=== PATIENT | female | born 1945 | race Caucasian/White ===

== ENCOUNTER 2016-07-18 12:47 | Emergency (ER) | payer MEDICARE, OTHER ==
[2016-07-18] MEDS ORDERED: IV NORMAL SALINE 1,000ML 1,000 ML IV SCH (13:12)
[2016-07-18] MEDS ORDERED: IV NORMAL SALINE 50ML 50 ML ONE (13:20)
[2016-07-18] MEDS ORDERED: CEFTRIAXONE SODIUM 1 GM VIAL IV ONE (13:20)
--- NOTE | 2016-07-18 13:28 | PHYS DOC ---
General Chief Complaint: SHORTNESS OF BREATH Stated Complaint: SOA,WEAKNESS Time Seen by MD: 13:05 Source: patient Exam Limitations: no limitations Problems: History of Present Illness Initial Comments Pt is 71/F to ED c/o sob, weakness. Pt states last Tuesday (8 days ago) while visiting family in [place] she developed fever and SOB. States she was seen at an ED in [place] diagnosed with possible LLL pneumonia. She was discharged with prednisone and levaquin 750mg. States she has been taking meds as prescribed, but feels she has not improved. "After a week I should feel better than this." No fever/chills/cp/ hemoptysis, weight loss, ANDERSON, focal weakness. Pt denies recent increase in LE edema, has trouble sleeping while lying flat denies PND. Chemical stress 2 yrs ago reportedly normal. 97% RA in ED. Timing/Duration: 1 week Severity: moderate Modifying Factors: worse with movement, improves with rest Associated Symptoms: cough, malaise, shortness of breath, weakness Allergies: Coded Allergies: Sulfa (Sulfonamide Antibiotics) (Verified Allergy, Unknown, 07/18/16) Past Medical History Medical History: other (asthma, HTN, osteoarthritis, GERD, anxiety, depression , HLP) Surgical History: noncontributory Social History Smoker: non-smoker Alcohol: none Drugs: none Review of Systems Constitutional: denies chills, denies fever, malaise Respiratory: see HPI Cardiovascular: denies chest pain, denies palpitations, denies syncope Gastrointestinal: denies abdominal pain, denies diarrhea, denies vomiting Genitourinary: denies dysuria, denies frequency, denies hematuria Musculoskeletal: denies back pain, denies joint swelling, denies neck pain Psychiatric/Neurological: denies headache, denies numbness, denies paresthesia Hematologic/Lymphatic: denies blood clots, denies easy bleeding, denies easy bruising Physical Exam General Appearance: no apparent distress, obese Eyes: bilateral eye EOMI, bilateral eye PERRL, bilateral eye normal inspection Ear, Nose, Throat: hearing grossly normal, normal ENT inspection, normal pharynx Neck: non-tender, supple Cardiovascular: normal peripheral pulses, regular rate, rhythm Gastrointestinal: non tender, soft Extremities: normal range of motion, non-tender (2+ pitting) Neurologic/Psychiatric: curtain cleaner II-XII nml as tested, no motor/sensory deficits, alert, normal mood/affect, oriented x 3 Skin: normal color, warm/dry Orders, Labs, Meds EKG: NSR 79 bpm no STEMI PATIENT: VY RICHARDSON ACCOUNT: [id number] : 1945 LOCATION: ER AGE: 71 SEX: F EXAM STATUS: REG ER ORD. PHYSICIAN: DAYANA BONILLA DO REASON: SHORTNESS OF BREATH PROCEDURE: CHEST PA & LATERAL EXAM: Chest, 2 views. HISTORY: Pneumonia. COMPARISON: 08/25/2011. FINDINGS: Frontal and lateral views of the chest are obtained. There is no infiltrate, effusion or pneumothorax. The heart is normal in size. IMPRESSION: No acute pulmonary finding. DICTATED AND SIGNED BY: MADDIE ZIEGLER MD DATE: 07/18/16 1505 CC: MITCHELL KUNZ MD; DAYANA BONILLA DO ~ Labs reassuring Discussed results. No cause for pt symptoms, I feel no emergent etiology. Discussed treatment plan, pt expressed agreement/understanding. Departure Time of Disposition: 15:21 Disposition: 01 HOME, SELF-CARE Diagnosis: generalized weakness, h/o LLL pneumonia Condition: GOOD Patient Instructions: Weakness, [id number] Additional Instructions: Rest, no strenuous activity. Aggressive hydration with gatorade, water. Continue current meds. Follow up with your doctor in 2-3 days. Return to ED with new or changing symptoms. DAYANA BONILLA DO Jul 18, 2016 13:28
[2016-07-18] MEDS ORDERED: IPRATRPIUM/ALBUTEROL 0.5/2.5MG 3 ML NEBU. NEB ONE (13:30)
[2016-07-18] MEDS ORDERED: methylPREDNISolone SOD SUCC PF 125 MG/2 ML VIAL. IV ONE (13:40)
[2016-07-18] MEDS ORDERED: CEFTRIAXONE SODIUM 1 GM in IV NORMAL SALINE 50ML 50 ML IV ONE (13:45)
[2016-07-18 14:00] LABS: BACTERIA,URINE 0 /HPF (0-FEW); BILIRUBIN,URINE NEG (NEG); CLARITY,URINE CLEAR; COLOR,URINE STRAW; GLUCOSE,URINE NEG (NEG); NITRITE,URINE NEG (NEG); RBC,URINE RARE /HPF (0-2); UROBILINOGEN,URINE 0.2 mg/dL (0.2 mg/dL); WBC,URINE OCC /HPF (0-4)
[2016-07-18 14:01] LABS: SQUAMOUS EPITHELIAL CELL,UR FEW /LPF
[2016-07-18 14:06] LABS: BASO % 0 % (0-3); EOS # 0.1 x10^3/uL (0.0-0.7); EOS % 2 % (0-3); HEMOGLOBIN 12.9 g/dL (12.0-15.5); LYMPH # 2.7 x10^3/uL (1.0-4.8); LYMPH % 29 % (24-48); MEAN CORPUSCULAR HEMOGLOBIN 32 pg (25-35); MEAN CORPUSCULAR HGB CONC 34 g/dL (31-37); MEAN CORPUSCULAR VOLUME 95 fL (79-100); MONO # 0.8 x10^3/uL (0.0-1.1); MONO % 9 % (0-9); NEUT # 5.5 x10^3uL (1.8-7.7); NEUT % 60 % (31-73); PLATELET COUNT 381 x10^3/uL (140-400); RED BLOOD COUNT 3.99 x10^6/uL (3.50-5.40); RED CELL DISTRIBUTION WIDTH 12.9 % (11.5-14.5); WHITE BLOOD COUNT 9.1 x10^3/uL (4.0-11.0)
[2016-07-18 14:14] LABS: ALBUMIN 3.3 g/dL (3.4-5.0); CALCIUM 8.6 mg/dL (8.5-10.1); CREATININE 0.8 mg/dL (0.6-1.0); GFR 70.9; POTASSIUM 4.2 mmol/L (3.5-5.1); TOTAL BILIRUBIN 0.3 mg/dL (0.2-1.0); TOTAL PROTEIN 6.6 g/dL (6.4-8.2)
--- NOTE | 2016-07-18 14:17 | EKG ---
[address] [address] Test Date: 2016-07-18 Test Time: 13:40:20 Pat Name: VY RICHARDSON Department: Room: Gender: F Broker Associate: VAHID : 1945 Requested By: DAYANA BONILLA Order Number: [id number] Reading MD: Measurements Intervals Baird Rate: 79 P: 54 DC: 166 QRS: 6 QRSD: 80 T: 42 QT: 382 QTc: 439 Interpretive Statements SINUS RHYTHM QRS(T) CONTOUR ABNORMALITY CONSIDER ANTEROSEPTAL MYOCARDIAL DAMAGE POSSIBLY ABNORMAL ECG RI6.01 Unconfirmed report No previous ECG available for comparison
[2016-07-18 14:24] LABS: INFLUENZA A PATIENT NEGATIVE (NEGATIVE); INFLUENZA B PATIENT NEGATIVE (NEGATIVE)
[2016-07-18 14:30] VITALS: BP 159/81
[2016-07-18] MEDS ORDERED: ALPRAZOLAM 0.25 MG TABLET PO ONE (15:00)
--- NOTE | 2016-07-18 15:09 | RAD ---
EXAM: Chest, 2 views. HISTORY: Pneumonia. COMPARISON: 08/25/2011. FINDINGS: Frontal and lateral views of the chest are obtained. There is no infiltrate, effusion or pneumothorax. The heart is normal in size. IMPRESSION: No acute pulmonary finding.
== END 2016-07-18 15:59 | disposition home or self-care (01) ==
LOC: ER 12:47
DX: R06.02 Shortness of breath (principal); R53.1 Weakness; J45.909 Unspecified asthma, uncomplicated; I10 Essential (primary) hypertension; K21.9 Gastro-esophageal reflux disease without esophagitis; E78.5 Hyperlipidemia, unspecified; M19.90 Unspecified osteoarthritis, unspecified site; Z88.2 Allergy status to sulfonamides
CPT/HCPCS: 36415; 71020; 80053; 81001; 82550; 83605; 83690; 83880; 84484; 85027; 85379; 87040; 87804; 93005; 96365; 96375; 99285; J0696; J2930; J7030

== ENCOUNTER 2018-01-06 18:50 | Emergency (ER) | payer MEDICARE, OTHER ==
[~2018-01-06] VITALS: Ht 157.5 cm; Wt 83.9 kg
[2018-01-06] MEDS ORDERED: MORPHINE SULFATE 4 MG/ML DISP.SYRIN. IV ONE (20:00)
[2018-01-06] MEDS ORDERED: IV NORMAL SALINE 1,000ML 1,000 ML IV ONE ×2 (20:15→22:45)
--- NOTE | 2018-01-06 20:19 | PHYS DOC ---
Past History Past Medical History: Anxiety, Arthritis, Asthma, Depression, GERD, Hypertension, Other Past Surgical History: Appendectomy, Hysterectomy, Other Smoking: Non-smoker Alcohol Use: Occasionally Drug Use: None Adult General Chief Complaint Chief Complaint: WRIST PAIN HPI HPI Patient is a 72 year old female who presents to the ED with left wrist pain and swelling following a fall one hour ago. She states she was leaving from someone's house when she missed the bottom step on the stairs and fell backwards. She outstretched her arm backwards to land the fall. Patient's notes that her head hit a flower pot. She denies any headaches, dizziness, vision changes, or loss of consciousness. Patient rates her wrist pain as a 10/10 and describes the pain is being sharp and constant. Pain does not radiate anywhere else. She reports significant erythema and edema. She has not tried anything to help with her pain, other than ice which is helping slightly. The pain is all around her wrist, but worst on the palmar side. Review of Systems Review of Systems Constitutional: Denies fever or chills Eyes: Denies change in visual acuity, redness, or eye pain HENT: Denies nasal congestion or sore throat Respiratory: Denies cough or shortness of breath Cardiovascular: Denies chest pain or heart palpitations GI: Denies abdominal pain, nausea, vomiting, bloody stools or diarrhea : Denies dysuria or hematuria Musculoskeletal: Notes left wrist and hand pain; Denies back pain or joint pain Integument: Denies rash or skin lesions Neurologic: Denies headache, focal weakness or sensory changes Complete systems were reviewed and found to be within normal limits, except as documented in this note. Family History Family History Noncontributory Current Medications Current Medications Current Medications Medications (Trade) Dose Ordered Sig/Sunita Start Time Stop Time Status Last Admin Dose Admin Fentanyl Citrate (Fentanyl 2ml Vial) 50 mcg 1X ONCE 01/06/18 19:30 01/06/18 19:31 DC 01/06/18 19:30 50 MCG Morphine Sulfate (Morphine 4mg Syringe) 4 mg 1X ONCE 01/06/18 20:00 01/06/18 20:07 DC 01/06/18 20:06 4 MG Allergies Allergies Allergies Coded Allergies Type Severity Reaction Last Updated Verified Influenza Virus Vaccines Allergy Severe 01/06/18 Yes Sulfa (Sulfonamide Antibiotics) Allergy Unknown 07/18/16 Yes pseudoephedrine Adverse Reaction Intermediate 01/06/18 Yes Physical Exam Physical Exam Constitutional: Well developed, well nourished, in acute distress HENT: Normocephalic, atraumatic, oropharynx moist Eyes: PERRL, EOMI, Conjunctiva normal, no discharge Neck: Normal range of motion, no midline tenderness, supple Cardiovascular: Heart rate regular rhythm, no murmur Lungs & Thorax: Bilateral breath sounds clear to auscultation Abdomen: Soft, no tenderness Skin: Warm, dry, no erythema, no rash Back: No midline tenderness, no CVA tenderness Extremities: Left wrist significantly tender to palpation with erythema and edema, obvious deformity noted, Radial pulse +2, CR< 2 sec Neurologic: Alert and oriented X 3, normal motor function, normal sensory function, cerebellar function Psychologic: Affect normal, judgement normal, mood normal EKG EKG [] Radiology/Procedures Radiology/Procedures PROCEDURE: WRIST 3V LEFT Three-view left wrist radiographs 01/06/2018 CLINICAL HISTORY: Fall with injury to the left wrist. Deformity. PA, lateral and oblique digital radiographs of the left wrist were obtained. An acute comminuted fracture of the distal left radial metaphysis is seen. The fracture fragments are impacted. Mild to moderate dorsal angulation of the major distal fracture fragment is noted. It is difficult to determine whether the fracture extends into the growth plate on these radiographs. Chondrocalcinosis is seen in the region of the TFCC IMPRESSION: Acute comminuted fracture of the distal left radial metaphysis as outlined above. Electronically signed by: Bryan Thompson MD (01/06/2018 9:00 PM) [facility] PROCEDURE: WRIST 2V LEFT Two-view left wrist radiographs 01/06/2018 CLINICAL HISTORY: Post reduction of a fracture of the left wrist. PA and lateral digital radiographs of the left wrist were obtained. Comparison study is dated earlier today at 1917 hours. An external cast been placed surrounding the left forearm and wrist. An acute comminuted fracture of the distal left radial metaphysis is seen. Mild dorsal angulation of the distal fracture fragment is noted. This has improved since the previous examination. IMPRESSION: Post reduction of a fracture of the distal left radius with interval placement of an external cast. Electronically signed by: Bryan Thompson MD (01/06/2018 10:43 PM) [facility] PROCEDURE: WRIST 2V LEFT Examination: 2 views of the left wrist HISTORY: History of post reduction COMPARISON: 01/06/2018 8:47 PM f Findings/ impression: Cast obscures fine bony detail. Comminuted acute fracture of the distal radius metadiaphysis is again identified with mild dorsal angulation of the distal fracture fragment slightly improved compared to prior exam. Electronically signed by: Michel Vázquez MD (01/07/2018 1:44 AM) [facility] Course & Med Decision Making Course & Med Decision Making Patient is a 72 year old female who presents to the ED with left wrist pain, swelling, and deformity following a fall. Pertinent labs and imaging studies were obtained and reviewed (see chart for details). Patient noted she was in severe pain and rated it as a 10/10. She received ice, Fentanyl and morphine. Wrist x-ray showed an acute comminuted fracture of the distal left radial metaphysis. Closed reduction under moderate sedation was performed and an external splint was wrapped. Post-reduction XR obtained with some mild improvement. Secondary reduction was performed and the external splint was re-wrapped. Repeat wrist x-ray showed significant improvement. Patient advised to followup with the orthopedist Dr. Ascencion Leigh in 3-7 days and was provided with care instructions for her wrist as well as a prescription for [place] for her pain. Patient stable for discharge with outpatient follow-up with Dr. Leigh. Discussed findings and plan with patient and , who acknowledge understanding and agreement. Dragon Disclaimer Dragon Disclaimer This electronic medical record was generated, in whole or in part, using a voice recognition dictation system. Departure Departure: Impression: Primary Impression: Distal radius fracture, left Disposition: 01 HOME, SELF-CARE Condition: STABLE Referrals: MITCHELL KUNZ MD (PCP) Patient Instructions: Cast or Splint Care, [id number], Sedation, Moderate, Adult, Wrist Fracture, [id number] Additional Instructions: Call Dr. Ascencion Leigh (orthopedics) for follow-up in 3-7 days at [facility] Docusate Sodium (COLACE) 100 Mg Capsule 1 CAP PO BID PRN for CONSTIPATION, #30 CAP Prov: ROSENDO RIOS DO 01/06/18 Hydrocodone Bit/Acetaminophen (NORCO 5-325 TABLET) 1 Each Tablet 1 TAB PO Q6HRS for PAIN, #14 TAB Prov: ROSENDO RIOS DO 01/06/18 Joint Reduction Procedure Joint Indication: [Closed Left distal radius fracture] Consent: [Written] Procedure: The pre-reduction exam showed Acute comminuted fracture of distal radial metaphysis. The patient was placed in sitting position with head of bed at 60 degrees. Appropriate airway, respiratory, cardiovascular and neurological assessment previously obtained. Cardiac, pulse oximetry, and end tidal CO2 monitoring in place. Supplemental O2 via NC empirically initiated. Time out performed. Anesthesia/pain control with a total of 200mcg of Fentanyl, 10mg of Etomidate, and 150mg of Ketamine. Patient did have some significant fasciculations after administration of Etomidate which limited ability to attempt reduction and required additional sedation medication of Ketamine. Reduction of the Left distal radius was performed by physical manipulation and traction. The affected area was immobilized with Orthoglass sugar tong splint. Post reduction films obtained with some improvement of alignment but was felt to not be adequate. Additional reduction performed after administration of 60mg of Propofol. Orthoglass splint was again applied. A post-reduction exam revealed CR < 2 sec and radial pulse +2. The patient tolerated the procedure well. Complications: As above (fasciculations after administration of 10mg of Etomidate) MODERATE SEDATION ASSESSMENT RISKS/ALTERNATIVES Risks/Alternatives Risks and alternatives of this type of sedation and procedure discussed with: RISK/ALTERNATIVES DISCUSSED: Patient H & P ON CHART H & P H & P on chart and reviewed for co-morbid conditions and appropriate labs. H&P ON CHART: Yes STATUS PREG STATUS ASSESSED: N/A MEDS/ALLERGIES REVIEWED Meds/Allergies Reviewed Medications and Allergies including time and route of recently administered narcotics and sedatives. MEDS/ALLERGIES REVIEWED: Yes ASA RATING ASA RATING: II AIRWAY ASSESSMENT Airway Assessment Airway patency, oral function limitations, presence of caps, crowns, dentures, partials, and ability to extend neck assessed. AIRWAY ASSESSMENT: Yes MALLAMPATI SCORE MALLAMPATI SCORE: III PRE-SEDATION ASSESSMENT PRE-SEDATION PHYSICAL: Yes Splinting Splinting : Location: Left wrist Hand-Made Type: orthoglass Splint: sugar-tong Pre-Proc Neuro Vasc Exam: normal Post-Proc Neuro Vasc Exam: normal, unchanged from pre-exam Problem Qualifiers Primary Impression: Distal radius fracture, left Encounter type: initial encounter Fracture type: closed Fracture morphology : unspecified fracture morphology Qualified Codes: S52.502A - Unspecified fracture of the lower end of left radius, initial encounter for closed fracture ROSENDO RIOS DO Jan 06, 2018 20:19
[2018-01-06] MEDS ORDERED: ETOMIDATE 40 MG/20 ML VIAL. IV ONE (20:30)
[2018-01-06] MEDS ORDERED: KETAMINE HCL 500 MG/10 ML VIAL. IV ONE ×3 (21:00)
--- NOTE | 2018-01-06 21:04 | RAD ---
Three-view left wrist radiographs 01/06/2018 CLINICAL HISTORY: Fall with injury to the left wrist. Deformity. PA, lateral and oblique digital radiographs of the left wrist were obtained. An acute comminuted fracture of the distal left radial metaphysis is seen. The fracture fragments are impacted. Mild to moderate dorsal angulation of the major distal fracture fragment is noted. It is difficult to determine whether the fracture extends into the growth plate on these radiographs. Chondrocalcinosis is seen in the region of the TFCC IMPRESSION: Acute comminuted fracture of the distal left radial metaphysis as outlined above. Electronically signed by: Bryan Thompson MD (01/06/2018 9:00 PM) [facility]
[2018-01-06] MEDS ORDERED: PROPOFOL 20 ML IV ONE ×3 (22:04→22:30)
[2018-01-06] MEDS ORDERED: HYDR-971 PO (22:41)
--- NOTE | 2018-01-06 22:46 | RAD ---
Two-view left wrist radiographs 01/06/2018 CLINICAL HISTORY: Post reduction of a fracture of the left wrist. PA and lateral digital radiographs of the left wrist were obtained. Comparison study is dated earlier today at 1917 hours. An external cast been placed surrounding the left forearm and wrist. An acute comminuted fracture of the distal left radial metaphysis is seen. Mild dorsal angulation of the distal fracture fragment is noted. This has improved since the previous examination. IMPRESSION: Post reduction of a fracture of the distal left radius with interval placement of an external cast. Electronically signed by: Bryan Thompson MD (01/06/2018 10:43 PM) [facility]
[2018-01-06] MEDS ORDERED: DOCU-109 PO (22:48)
[2018-01-06] MEDS ORDERED: HYDROcodone/APAP 7.5/325MG 1 TAB TABLET ONE (23:22)
[2018-01-06] MEDS ORDERED: LORazepam 2 MG/ML VIAL IV ONE (23:30)
[2018-01-06] MEDS ORDERED: HYDROcodone/APAP 5/325MG 1 TAB TABLET PO ONE (23:30)
[2018-01-06] MEDS ORDERED: HYDROcodone/APAP 7.5/325MG 1 TAB TABLET PO ONE (23:45)
[2018-01-07 00:30] VITALS: BP 149/84
--- NOTE | 2018-01-07 01:47 | RAD ---
Examination: 2 views of the left wrist HISTORY: History of post reduction COMPARISON: 01/06/2018 8:47 PM f Findings/ impression: Cast obscures fine bony detail. Comminuted acute fracture of the distal radius metadiaphysis is again identified with mild dorsal angulation of the distal fracture fragment slightly improved compared to prior exam. Electronically signed by: Michel Vzáquez MD (01/07/2018 1:44 AM) [facility]
[2018-01-07] MEDS ORDERED: MONT10TA6 PO (03:26)
[2018-01-07] MEDS ORDERED: proair INH (03:39)
[2018-01-07] MEDS ORDERED: SIMV10TA PO (03:39)
[2018-01-07] MEDS ORDERED: ROPI2TAB4 PO (03:39)
[2018-01-07] MEDS ORDERED: RALO60TA PO (03:39)
[2018-01-07] MEDS ORDERED: NEBI5TAB2 PO (03:39)
[2018-01-07] MEDS ORDERED: FLUT9.9S NS (03:39)
[2018-01-07] MEDS ORDERED: CYCL1DRO OP (03:39)
[2018-01-07] MEDS ORDERED: LANS30CA66 PO (03:39)
[2018-01-07] MEDS ORDERED: ALPR1TAB2 PO (03:39)
[2018-01-07] MEDS ORDERED: MIRA25TA PO (03:39)
[2018-01-07] MEDS ORDERED: MELO15TA23 PO (03:39)
[2018-01-07] MEDS ORDERED: VICODIN ES PO (03:39)
[2018-01-07] MEDS ORDERED: VALA500T5 PO (03:39)
[2018-01-07] MEDS ORDERED: TRINTELLEX PO (03:39)
[2018-01-07] MEDS ORDERED: XOPENEX1.25 MG/3 IH (03:39)
[2018-01-07] MEDS ORDERED: CYCL-331 PO (03:39)
[2018-01-07] MEDS ORDERED: OMEGA PO (03:48)
[2018-01-07] MEDS ORDERED: MULT1TAB52 PO (03:48)
[2018-01-07] MEDS ORDERED: FLAX100031 PO (03:48)
[2018-01-07] MEDS ORDERED: CHOL500016 PO (03:48)
[2018-01-07] MEDS ORDERED: Co Q 10 PO (03:48)
[2018-01-07] MEDS ORDERED: VITA400C36 PO (03:48)
[2018-01-07] MEDS ORDERED: GLUC1CAP48 PO (03:48)
[2018-01-07] MEDS ORDERED: VIT D PO (03:48)
[2018-01-07] MEDS ORDERED: ACET500T33 PO (03:48)
[2018-01-07] MEDS ORDERED: CITRACAL PO (03:48)
== END 2018-01-07 00:45 | disposition home or self-care (01) ==
LOC: ER 18:50
DX: S52.502A Unspecified fracture of the lower end of left radius, initial encounter for closed fracture (principal); F41.9 Anxiety disorder, unspecified; M19.90 Unspecified osteoarthritis, unspecified site; J45.909 Unspecified asthma, uncomplicated; K21.9 Gastro-esophageal reflux disease without esophagitis; I10 Essential (primary) hypertension; F32.9 Major depressive disorder, single episode, unspecified; Z88.2 Allergy status to sulfonamides; Z88.7 Allergy status to serum and vaccine; Z88.8 Allergy status to other drugs, medicaments and biological substances; W10.9XXA Fall (on) (from) unspecified stairs and steps, initial encounter; Y93.89 Activity, other specified; Y92.89 Other specified places as the place of occurrence of the external cause; Y99.8 Other external cause status
CPT/HCPCS: 25605; 73100; 73110; 96374; 96375; 99285; J2060; J2270; J2704; J3010; J3490; 99152; 99153; J7030

== ENCOUNTER 2018-01-07 21:10 | Emergency (ER) | payer MEDICARE, OTHER ==
[~2018-01-07] VITALS: Ht 157.5 cm; Wt 83.9 kg
[~2018-01-07 21:10] MED LIST: ACET500T33 PO; ALPR1TAB2 PO; CHOL500016 PO; CITRACAL PO; CYCL-331 PO; CYCL1DRO OP; Co Q 10 PO; DOCU-109 PO; FLAX100031 PO; FLUT9.9S NS; GLUC1CAP48 PO; HYDR-971 PO; LANS30CA66 PO; MELO15TA23 PO; MIRA25TA PO; MONT10TA6 PO; MULT1TAB52 PO; NEBI5TAB2 PO; OMEGA PO; RALO60TA PO; ROPI2TAB4 PO; SIMV10TA PO; TRINTELLEX PO; VALA500T5 PO; VICODIN ES PO; VIT D PO; VITA400C36 PO; XOPENEX1.25 MG/3 IH; proair INH
--- NOTE | 2018-01-07 21:14 | ED.ADGEN ---
Past History Past Medical History: Anxiety, Arthritis, Asthma, Depression, GERD, High Cholesterol, Hypertension, Other Past Surgical History: Appendectomy, Hysterectomy, Knee Replacement Smoking: Non-smoker Alcohol Use: Occasionally Drug Use: None Adult General Chief Complaint Chief Complaint "... My arm hurts.. " [facility] HPI Patient is a 72 year old female who presents with above hx and complaints pain in Lt. forearm. Pt. seen yesterday for fx Lt. wrist. Reduction and splint at that time. (See prior ED report). Pt. has not kept arm elevated well since discharge yesterday. Pt. did take home meds for pain, but did not get complete relief. Pt. does have edema to finger on lt. hand. Distal sensation intact, and range motion of fingers. Splint wrap removed. After Ice pack and pain meds. - wrist re-splinted. Pt. advise would not be reasonable to have complete relief of pain. Pt. must keep wrist elevated above her heart. Pt. must keep follow up. Pt. to return if any concerns. Review of Systems Review of Systems Constitutional: Denies fever or chills [] Eyes: Denies change in visual acuity, redness, or eye pain [] HENT: Denies nasal congestion or sore throat [] Respiratory: Denies cough or shortness of breath [] Cardiovascular: No additional information not addressed in HPI [] GI: Denies abdominal pain, nausea, vomiting, bloody stools or diarrhea [] : Denies dysuria or hematuria [] Musculoskeletal: Denies back pain or joint pain []Complaints of Lt wrist pain. Integument: Denies rash or skin lesions [] Neurologic: Denies headache, focal weakness or sensory changes [] Endocrine: Denies polyuria or polydipsia [] All other systems were reviewed and found to be within normal limits, except as documented in this note. Family History Family History Non-contributory Current Medications Current Medications Current Medications Medications (Trade) Dose Ordered Sig/Sunita Start Time Stop Time Status Last Admin Dose Admin Lorazepam (Ativan) 2 mg 1X ONCE 01/07/18 22:30 01/07/18 22:31 DC 01/07/18 22:25 2 MG Morphine Sulfate (Morphine 10mg Syringe) 10 mg 1X ONCE 01/07/18 21:45 01/07/18 21:46 DC 01/07/18 21:54 10 MG Allergies Allergies Allergies Coded Allergies Type Severity Reaction Last Updated Verified Influenza Virus Vaccines Allergy Severe 01/06/18 Yes Sulfa (Sulfonamide Antibiotics) Allergy Unknown 07/18/16 Yes pseudoephedrine Adverse Reaction Intermediate 01/06/18 Yes Physical Exam Physical Exam Constitutional: Well developed, well nourished, moderately acute distress, non- toxic appearance. [] HENT: Normocephalic, atraumatic, bilateral external ears normal, oropharynx moist, no oral exudates, nose normal. [] Eyes: PERRLA, EOMI, conjunctiva normal, no discharge. [] Neck: Normal range of motion, no tenderness, supple, no stridor. [] Cardiovascular:Heart rate regular rhythm, no murmur [] Lungs & Thorax: Bilateral breath sounds clear to auscultation [] Abdomen: Bowel sounds normal, soft, no tenderness, no masses, no pulsatile masses. [] Obese. Scar. Skin: Warm, dry, no erythema, no rash. [] Back: No tenderness, no CVA tenderness. [] Extremities: No tenderness, no cyanosis, no clubbing, ROM intact,Except Lt. had and wrist edema. [Splinted. Splint removed for skin exam. Neurologic: Alert and oriented X 3, normal motor function, normal sensory function, no focal deficits noted. [] Psychologic: Affect anxious, judgement normal, mood normal. [] Current Patient Data Vital Signs Vital Signs Date Time Temp Pulse Resp B/P (MAP) Pulse Ox O2 Delivery O2 Flow Rate FiO2 01/07/18 21:54 22 97 Room Air 01/07/18 21:43 98.0 81 EKG EKG [] Radiology/Procedures Radiology/Procedures Reviewed prior x-ray films. [] Course & Med Decision Making Course & Med Decision Making Pertinent Labs and Imaging studies reviewed. (See chart for details) MUST KEEP WRIST ELEVATED ABOVE HEART. Take pain meds as directed. Must follow up with orthro and primary. Return if any concerns. [] Final Impression Final Impression 1. Wrist Fx Lt. [] Dragon Disclaimer Dragon Disclaimer This electronic medical record was generated, in whole or in part, using a voice recognition dictation system. GRIFFIN URIOSTEGUI MD Jan 07, 2018 21:14
[2018-01-07 21:43] VITALS: BP 163/99
[2018-01-07] MEDS ORDERED: MORPHINE SULFATE 10 MG/ML SYRINGE. SQ ONE (21:45)
[2018-01-07] MEDS ORDERED: LORazepam 1 MG TABLET PO ONE (22:30)
== END 2018-01-07 23:00 | disposition home or self-care (01) ==
LOC: ER 21:10
DX: S52.502D Unspecified fracture of the lower end of left radius, subsequent encounter for closed fracture with routine healing (principal); M79.632 Pain in left forearm; R60.9 Edema, unspecified; M19.90 Unspecified osteoarthritis, unspecified site; J45.909 Unspecified asthma, uncomplicated; F41.9 Anxiety disorder, unspecified; F32.9 Major depressive disorder, single episode, unspecified; E78.00 Pure hypercholesterolemia, unspecified; I10 Essential (primary) hypertension; Z88.2 Allergy status to sulfonamides; Z88.7 Allergy status to serum and vaccine; Z88.8 Allergy status to other drugs, medicaments and biological substances; X58.XXXD Exposure to other specified factors, subsequent encounter
CPT/HCPCS: 96372; 99283; J2270

== ENCOUNTER → 2020-02-26 | Outpatient (CLI) | payer MEDICARE, OTHER ==
[~2020-02-26] MED LIST changes: +HYDR-3165 PO; -HYDR-971 PO; -MONT10TA6 PO; +MONT10TA80 PO; +MULT-445 PO; -MULT1TAB52 PO; +ROPI2TAB10 PO; -ROPI2TAB4 PO; +VITA-8 PO; -VITA400C36 PO
--- NOTE | 2020-02-26 21:08 | RAD ---
EXAM: Dual energy x-ray absorptiometry (DEXA). HISTORY: History of fractures. COMPARISON: None available. TECHNIQUE: Dual energy x-ray absorptiometry of the lumbar spine and right hip was performed. Calculation of bone mineral density based on standard deviations above or below the expected young adult normal value (T-score) was completed. FINDINGS: The average bone mineral density in the 1st through 4th lumbar vertebrae is 1.053 g/cmxcm, corresponding with a T-score of -1.1. The average total bone mineral density in the right proximal femur is 0.809 g/cmxcm, corresponding with a T-score of -1.6. IMPRESSION: Osteopenia. Note: Definitions established by the World Health Organization: 1. Normal: T-score is -1.0 or above. 2. Osteopenia: T-score is between -1.0 and -2.5 . 3. Osteoporosis: T-score is -2.5 or below. Electronically signed by: Mary Mcclelland MD (02/26/2020 9:05 PM) [id number]
== END ==
LOC: DXRAD 13:57
PROVIDERS: ATTEND Internal Medicine
DX: M85.88 Other specified disorders of bone density and structure, other site (principal); E28.39 Other primary ovarian failure
CPT/HCPCS: 77080

== ENCOUNTER → 2020-07-22 | Outpatient (CLI) | payer MEDICARE, OTHER ==
--- NOTE | 2020-07-22 17:38 | RAD ---
DATE: July 22, 2020 EXAM: MAMMO [facility] SCREENING BILATERAL HISTORY: Routine screening. COMPARISON: Bilateral mammogram 02/13/2015 CAD was utilized. FINDINGS: The breast parenchyma is heterogeneously dense, which could reduce sensitivity of mammography. There are no dominant suspicious masses, suspicious microcalcifications or evidence of architectural distortion. IMPRESSION: No mammographic evidence of malignancy. Recommend routine screening. BI-RADS CATEGORY: 1 NEGATIVE RECOMMENDED FOLLOW-UP: 12M 12 MONTH FOLLOW-UP PQRS compliance statement: Patient information was entered into a reminder system with a target due date for the next mammogram. Mammography is a sensitive method for finding small breast cancers, but it does not detect them all and is not a substitute for careful clinical examination. A negative mammogram does not negate a clinically suspicious finding and should not result in delay in biopsying a clinically suspicious abnormality. "Our facility is accredited by the [employer] Mammography Program."
== END ==
LOC: MAMMO 11:25
PROVIDERS: ATTEND Internal Medicine
DX: Z12.31 Encounter for screening mammogram for malignant neoplasm of breast (principal)
CPT/HCPCS: 77063; 77067